=== PATIENT | female | born 2000 | race Caucasian/White ===

== ENCOUNTER 2019-04-19 16:47 | Emergency (ER) | payer MEDICAID ==
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
[2019-04-19] MEDS ORDERED: Diphtheria,Pertussis(Acell),Tetanus Vaccine 0.5 ML SDV IM ONE (17:21)
[2019-04-19] MEDS ORDERED: Bacitracin Oint 1 GM U/D Packet TOP ONE (17:22)
== END 2019-04-19 18:20 | disposition home or self-care (01) ==
LOC: JP.ED 16:47
DX: T22.20XA Burn of second degree of shoulder and upper limb, except wrist and hand, unspecified site, initial encounter (principal); S40.012A Contusion of left shoulder, initial encounter; Z23 Encounter for immunization; W22.11XA Striking against or struck by driver side automobile airbag, initial encounter; X08.8XXA Exposure to other specified smoke, fire and flames, initial encounter
CPT/HCPCS: 90471; 90715; 99283; 99284

== ENCOUNTER 2024-09-14 23:13 | Emergency (ER) | payer OTHER, MEDICAID ==
[2024-09-15] MEDS: Venlafaxine 75 MG Cap.ER PO SCH (00:19)
[2024-09-15] MEDS: Nortriptyline 25 MG Cap PO ONE (00:19)
[2024-09-15] MEDS: ARIPiprazole 10 MG Tab PO ONE (00:19)
== END 2024-09-15 00:27 | disposition home or self-care (01) ==
LOC: JP.ED 23:13
DX: R20.8 Other disturbances of skin sensation (principal); Z79.899 Other long term (current) drug therapy; V48.5XXA Car driver injured in noncollision transport accident in traffic accident, initial encounter
CPT/HCPCS: 99283; 99284; A9270